=== PATIENT | male | born 1975 | race Hispanic/Latino ===

== ENCOUNTER 2019-10-03 12:27 | Emergency (ER) | payer OTHER ==
[2019-10-03] MEDS ORDERED: KETOROLAC TROMETHAMINE 30MG/ML ONE (12:51)
[2019-10-03 13:02] LABS: BASOPHILS % (AUTO) 0.4 % (0.0-5.0); EOSINOPHILS % (AUTO) 0.2 % (0.0-8.0); HEMATOCRIT 45.7 % (42-54); LYMPHOCYTES % (AUTO) 7.7 % (21.0-51.0); MEAN CORPUSCULAR HGB CONC 34.1 g/dL (32.0-36.0); MEAN CORPUSCULAR VOLUME 90.7 fL (79-99); MONOCYTES % (AUTO) 2.7 % (3.0-13.0); NEUTROPHILS % (AUTO) 88.5 % (40.0-77.0); PLATELET COUNT (AUTO) 333 K/uL (130-400); RED BLOOD CELL COUNT(AUTO) 5.04 MIL/uL (4.50-6.20); RED CELL DISTRIBUTION WIDTH 12.1 % (11.0-15.5); WHITE BLOOD COUNT (AUTO) 15.4 K/uL (4.8-10.8)
[2019-10-03 13:04] LABS: APPEARANCE,URINE TURBID (CLEAR); BILIRUBIN,URINE SMALL (NEGATIVE); COLOR,URINE YELLOW (YELLOW); GLUCOSE, URINE (UA) NEGATIVE (NEGATIVE); KETONES,URINE NEGATIVE (NEGATIVE); LEUKOCYTE ESTERASE ,URINE NEGATIVE (NEGATIVE); NITRATE,URINE NEGATIVE (NEGATIVE); OCCULT BLOOD,URINE LARGE (NEGATIVE); PROTEIN,URINE 30 mg/dL (NEGATIVE)
[2019-10-03 13:14] LABS: CREATININE 1.3 mg/dL (0.5-1.5); POTASSIUM 4.3 mmol/L (3.5-5.1)
[2019-10-03] MEDS ORDERED: ONDANSETRON HCL 4 MG/2 ML VIAL ONE (13:41)
[2019-10-03 13:46] LABS: RBC,URINE >100 /HPF (0-1)
[2019-10-03 13:47] LABS: BACTERIA,URINE Few /HPF (None Seen); SQUAMOUS EPITHELIAL CELL,UR Few /HPF (0-2)
[2019-10-03 13:48] LABS: AMORPHOUS SEDIMENT,UR Many /LPF (None Seen); MUCUS,URINE Few LPF (None Seen)
[2019-10-03] MEDS ORDERED: CEFTRIAXONE SODIUM 1 GM ONE (14:22)
== END 2019-10-03 15:46 | disposition home or self-care (01) ==
LOC: EDH 12:27
DX: N12 Tubulo-interstitial nephritis, not specified as acute or chronic (principal); Z90.49 Acquired absence of other specified parts of digestive tract; Z72.0 Tobacco use
CPT/HCPCS: 36415; 74176; 80048; 81001; 85025; 87088; 96374; 96375; 99284; J0696; J1885; J2405

== ENCOUNTER 2024-08-05 20:35 | Emergency (ER) | payer SELFPAY ==
[~2024-08-05] VITALS: Ht 175.3 cm; Wt 111.1 kg
[2024-08-05] MEDS: ibuPROFEN 800 MG TAB PO ONE (21:15)
[2024-08-05] MEDS ORDERED: IBUP-2070 PO (22:52)
--- NOTE | 2024-08-05 22:52 | ERN ---
ED Note History of Present Illness Stated Complaint: HEEL PAIN Chief Complaint: FOOT INJURY/PAIN Time Seen by MD: 20:38 Time Seen by Midlevel: 20:38 Dictation: The patient is a 48-year-old male with a history of cholecystectomy who presents to the emergency department with complaints of left heel pain onset a week. Patient denies any traumas. 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 No fevers or any associated complaints reported. 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 08/05/24 Past Medical History Past Medical History: No Pertinent History Surgical History: Cholecystectomy RN Note Reviewed/Agreed w/PFSH: Yes Review of System Dictation Constitutional: Negative for fever,chills, and weight loss Eyes: Negative for injury, pain,redness, and discharge ENT: Negative for injury,pain or swelling Cardiovascular: Negative for chest pain, palpitations, and edema Respiratory: Negative for shortness of breath, cough, and wheezing, Abdomen/GI: Negative for abdominal pain, nausea, vomiting, diarrhea, and constipation Back: Negative for injury and pain : Negative for injury, bleeding and discharge MS/Extremity: Positive for left heel pain Skin: Negative for rash, and discoloration Neuro: Negative for headache, weakness, numbness, tingling, and seizure Psych: Negative for suicide ideation, homicidal ideation, and hallucinations Initial Vital Sign VS Vital Signs Date Time Temp Pulse Resp B/P (MAP) Pulse Ox O2 Delivery O2 Flow Rate FiO2 08/05/24 20:41 99.0 93 20 145/92 97 Room Air 08/05/24 23:09 0 21 Physical Exam Dictation Vital Signs reviewed General Appearance: Alert, oriented x 3, no acute distress, well developed, nourished. Head and Face: non-traumatic. Eyes: PERRL, pink conjunctivas, eyelid no trauma, anterior chamber with arcus senilis. Ears: Pinnas intact and no signs of trauma or erythema ear canals clear and no discharge TM no erythema Nose: No discharge, no bleeding. Oropharynx: Mouth normal, tongue pink. pharynx clear,no erythema, tonsils no exudates, no abscesses noted, mucous membrane moist Neck: Supple, non-tender, no thyromegaly, no masses, no JVD, no bruits Breast:Deferred Chest:No tenderness, no crepitus, no paradoxical movement, no retractions Lungs:Clear, well-ventilated, symmetric, no rales, no wheezing, no rhonchi, no stridor, good breath sounds bilaterally Heart: Regular rate, regular rhythm, no murmur, no gallops Vascular: no peripheral edema, dorsalis pedis 3+ bilaterally Abdomen: Soft, positive bowel sounds, nondistended, no guarding, nontender, no rebound, no masses no hepatomegaly, no splenomegaly, no Gordon's sign, no hernias. Rectal: Deferred Genital: Deferred Neurological: Normal speech, motor function intact, sensory function intact Musculoskeletal: Neck nontender, full range of motion, back nontender, full range of motion, Extremities: nontender, full range of motion , left heel tenderness, no wounds or erythema Skin: Color pink, dry, no turgor, no rash, no lacerations, no abrasions, no contusions. Lymphatic: Deferred Results (Laboratory/Radiology) Labs Reviewed?: Yes ED Course ED Course Orders Procedure Category Date Status Time Foot Comp 3+Vws Lt RAD 08/05/24 Taken 20:50 Ibuprofen 800 Mg Tab PHA 08/05/24 Complete (Motrin) 21:00 Current Medications Medications (Trade) Dose Ordered Sig/Elissa Route PRN Reason Start Time Stop Time Status Last Admin Dose Admin Ibuprofen (moTRIN) 800 mg ONCE ONCE PO 08/05/24 21:00 08/05/24 21:01 DC 08/05/24 21:15 Vital Signs Date Time Temp Pulse Resp B/P (MAP) Pulse Ox O2 Delivery O2 Flow Rate FiO2 08/05/24 23:09 98.8 90 18 140/90 98 Room Air* 0 21 08/05/24 20:41 99.0 93 20 145/92 97 Room Air Medical Decision Making MDM The patient is a 48-year-old male with a history of cholecystectomy who presents to the emergency department with complaints of left heel pain onset a week. Patient denies any traumas. 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 No fevers or any associated complaints reported. X-ray showed no obvious fractures. Patient with no wounds to heal, no swelling. Patient instructed to avoid any prolonged standing and to our supported shoes . Patient in no acute distress, neurovascularly intact we will be discharged to follow up with PCP. Need for hospitalization: Patient does not meet criteria for hospitalization. There are no social concerns with this patient. DX & DISP Disposition: Discharge Departure Impression: Primary Impression: Pain of left heel Condition: Stable Scripts Ibuprofen (Ibuprofen) 600 Mg Tablet 600 MG PO Q6H PRN for PAIN, #10 TAB Prov: QUAN TY 08/05/24 Additional Instructions: Your x-ray showed no fractures. avoid poorly fitting shoes. Avoid being on your feet for prolonged periods of time. FOLLOW-UP WITH PRIMARY CARE PROVIDER IN 1 TO 2 DAYS. TAKE MEDICATIONS DIRECTED HERE IN THE EMERGENCY ROOM. OKAY TO CONTINUE HOME MEDICATIONS UNLESS OTHERWISE DISCUSSED DURING YOUR VISIT IN THE EMERGENCY ROOM TODAY. RETURN TO YOUR NEAREST EMERGENCY ROOM IF SYMPTOMS WORSEN OR IF THERE IS NO IMPROVEMENT. CALL 911 IF YOU NEED IMMEDIATE ASSISTANCE. TAKE TYLENOL OR MOTRIN [id number] NEEDED AND IF NO CONTRAINDICATIONS ARE PRESENT. INCREASE ORAL HYDRATION. A WOUND CULTURE OR URINE CULTURE WAS ORDERED HERE IN THE EMERGENCY ROOM DEPARTMENT PLEASE FOLLOW-UP WITH PRIMARY CARE PROVIDER AND ADVISE THEM TO GET REPEAT PORTS FROM OUR FACILITY. IF YOU HAD ANY KRISTINA WRAP/SPLINTS THAT WERE APPLIED HERE, PLEASE DO NOT REMOVE THEM UNTIL YOU SEE YOUR PRIMARY CARE OR SPECIALTY. Referrals: SELF,REFERRAL (PCP) Time of Disposition: 22:48 I have reviewed the case, and I agree with, Diagnosis and Plan QUAN TY August 05, 2024 22:52
[2024-08-05 23:09] VITALS: BP 140/90; PULSE 90; RESP 18; TEMP 98.8; O2SAT 98
--- NOTE | 2024-08-06 09:35 | HMCIMG ---
FOOT COMP 3+VWS LT HISTORY: Pain COMPARISON: None TECHNIQUE: 3 images of left foot were obtained. FINDINGS: There is no acute displaced fracture or dislocation. There is a small calcaneal spur. Degenerative changes are seen. IMPRESSION: 1. Findings as described above.
== END 2024-08-05 23:10 | disposition home or self-care (01) ==
LOC: EDH 20:35
DX: M79.672 Pain in left foot (principal); Z90.49 Acquired absence of other specified parts of digestive tract
CPT/HCPCS: 73630; 99283